=== PATIENT | male | born 1995 | race African-American/Black ===

== ENCOUNTER 2019-10-05 23:09 | Emergency (ER) | payer OTHER ==
[2019-10-06] MEDS ORDERED: MORPHINE SULFATE 10 MG/ML INJ IV ONE (00:35)
[2019-10-06] MEDS ORDERED: ONDANSETRON HCL INJ/PF 4 MG/2 ML SDV IV ONE (00:36)
[2019-10-06] MEDS ORDERED: NORMAL SALINE 1000 ML 1,000 ML IV ONE (00:37)
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
[2019-10-06 01:17] LABS: ABSOLUTE LYMPHOCYTES (AUTO) 1.3 10^3/uL (0.5-4.7); ABSOLUTE MONOCYTES (AUTO) 0.8 10^3/uL (0.1-1.4); ABSOLUTE NEUT (AUTO) 9.7 10^3/uL (1.7-8.2); BASOPHILS % (AUTO) 0.3 % (0-2); EOSINOPHILS % (AUTO) 0.2 % (0-6); HEMATOCRIT 44.2 % (37.9-51.0); HEMOGLOBIN 15.1 g/dL (13.5-17.0); LYMPHOCYTES % (AUTO) 10.9 % (13-45); MEAN CORPUSCULAR HEMOGLOBIN 30.5 pg (27.0-33.4); MEAN CORPUSCULAR HGB CONC 34.1 g/dL (32.0-36.0); MEAN CORPUSCULAR VOLUME 90 fl (80-97); MONOCYTES % (AUTO) 6.8 % (3-13); PLATELET COUNT 165 10^3/uL (150-450); RED BLOOD COUNT 4.94 10^6/uL (4.35-5.55); RED CELL DISTRIBUTION WIDTH 13.4 % (11.5-14.0); SEGMENTED NEUTROPHILS % (AUTO) 81.8 % (42-78); TOTAL CELLS COUNTED % (AUTO) 100 %; WHITE BLOOD COUNT 11.8 10^3/uL (4.0-10.5)
--- NOTE | 2019-10-06 01:20 | RADIOLOGY REPORT (SQ) ---
EXAM DESCRIPTION: XR ANKLE 3 OR MORE VIEWS COMPLETED DATE/TME: 10/06/2019 00:37 CLINICAL HISTORY: 23 years, Male, injury COMPARISON: None. NUMBER OF VIEWS: 3 TECHNIQUE: 3 view left ankle LIMITATIONS: None. FINDINGS: Post surgical changes of the distal tibia and fibula. Negative for acute fracture or dislocation. Ankle mortise is intact. Soft tissues are unremarkable IMPRESSION: No acute osseous abnormality copyright 2010 [employer]- All Rights Reserved
[2019-10-06 01:37] LABS: ALBUMIN 4.5 g/dL (3.5-5.0); ALKALINE PHOSPHATASE 110 U/L (38-126); ANION GAP 6 (5-19); ASPARTATE AMINO TRANSFERASE 45 U/L (17-59); BILIRUBIN,TOTAL 0.5 mg/dL (0.2-1.3); BLOOD UREA NITROGEN 17 mg/dL (7-20); CALCIUM 9.5 mg/dL (8.4-10.2); CARBON DIOXIDE 29 mmol/L (22-30); CHLORIDE 104 mmol/L (98-107); GLUCOSE 91 mg/dL (75-110); POTASSIUM 4.2 mmol/L (3.6-5.0); TOTAL PROTEIN 7.2 g/dL (6.3-8.2)
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
[2019-10-06 02:06] LABS: APPEARANCE,URINE SLIGHTLY-CLOUDY; BILIRUBIN,URINE NEGATIVE (NEGATIVE); COLOR,URINE YELLOW; GLUCOSE, URINE NEGATIVE (NEGATIVE); KETONES,URINE NEGATIVE (NEGATIVE); LEUKOCYTE ESTERASE,URINE NEGATIVE (NEGATIVE); NITRITE,URINE NEGATIVE (NEGATIVE); PROTEIN,URINE 30 mg/dL (NEGATIVE)
[2019-10-06 03:25] VITALS: BP 113/62
== END 2019-10-06 03:25 | disposition home or self-care (01) ==
LOC: ER 23:09
DX: S93.402A Sprain of unspecified ligament of left ankle, initial encounter (principal); S30.1XXA Contusion of abdominal wall, initial encounter; M25.551 Pain in right hip; V28.4XXA Motorcycle driver injured in noncollision transport accident in traffic accident, initial encounter
CPT/HCPCS: 99284; 96361; 96374; 96375; 36415; 85025; 80053; 81001; 73610; 74177; J2270; J2405; J7030